=== PATIENT | male | born 1950 | race Caucasian/White ===

== ENCOUNTER 2018-05-23 07:46 | Emergency (ER) | payer OTHER, MEDICAID ==
--- NOTE | 2018-05-23 08:07 | EDPHY ---
H & P Time Seen by Provider: 05/23/18 08:06 HPI/ROS: Chief complaint. Altered mental status HPI. A 67-year-old male here by EMS with altered mental status. 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 He denies any other drugs or alcohol. He went to a support group this morning and they felt like he was slightly altered and called EMS. 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 Denies focal weakness or paresthesias. He denies headache, visual change, chest pain, shortness of breath, abdominal pain, vomiting or diarrhea, fever. He tells me he is feeling better now. ROS Constitutional. no fever/chills, no weakness Eyes. no problems with vision ENT. no sore throat, no nasal drainage Cardiovascular. no chest pain Respiratory. no shortness of breath, no cough Abdominal. no abdominal pain, no nausea/vomiting, no diarrhea . no problems urinating MS. no calf pain/swelling, no neck/back pain, no joint pain Skin. no rash Lymph. no swollen glands Neuro. Altered mental status per patient's support group Past Medical/Surgical History: CVA, hypertension remote IV drug use on daily methadone Social History: Single, nonsmoker, denies alcohol Smoking Status: Never smoked Physical Exam: General Appearance: Alert pleasant well-developed male mild distress vital signs significant for O2 saturation 85% on room air Eyes: Pupils equal and round no pallor or injection. ENT, Mouth: Mucous membranes are moist. Respiratory: There are no retractions, lungs are clear to auscultation. Cardiovascular: Regular rate and rhythm. Gastrointestinal: Abdomen is soft and nontender, no masses, bowel sounds normal. Neurological: Awake and alert, sensory and motor exams grossly normal. Speech is baseline with baseline dysphagia. Cranial nerve show residual left facial droop from his previous CVA that he says is not new or different. There is no pronator drift. [id number] and [id number]-[id number] are intact. Skin: Warm and dry, no rashes. Musculoskeletal: Neck is supple nontender. Extremities symmetrical, full range of motion. Psychiatric: Patient is oriented X 3, there is no agitation. Constitutional: Initial Vital Signs Temperature (C) 37.1 C 05/23/18 07:55 Heart Rate 68 05/23/18 07:55 Respiratory Rate 16 05/23/18 07:55 Blood Pressure 147/96 H 05/23/18 07:55 O2 Sat (%) 85 L 05/23/18 07:55 O2 Delivery Mode Room Air Allergies/Adverse Reactions: No Known Allergies Allergy (Unverified 05/10/13 18:49) Home Medications: Medication Instructions Recorded Aspirin [Aspirin 325 mg (OTC)] 325 mg PO DAILY 05/10/13 Cholecalciferol Vit D3 [Vitamin D3 10,000 units PO DAILY 05/10/13 2000 units (OTC)] Diazepam [Valium 5 MG (RX)] 10 mg PO DAILY 05/10/13 Herbals/Supplements -Info Only 1 each PO AD 05/10/13 Ibuprofen [Motrin 600 mg (RX)] 600 mg PO TID PRN 05/10/13 Lisinopril [Zestril 40 mg (RX)] 40 mg PO DAILY 05/10/13 M D Recon 05/1005/10/13 Methadone HCl [Methadone Intensol] 135 mg PO DAILY 05/10/13 Pharmacist Completed 05/10/13 05/10/13 Prolia Inj 60 mg SQ [id number] 05/10/13 amLODIPine BESYLATE [Norvasc] 10 mg PO DAILY 05/10/13 predniSONE [predniSONE] 1 mg PO DAILY 05/10/13 Medical Decision Making - Diagnostics EKG Interpretation: EKG interpreted by me shows normal sinus rhythm with normal interval and axis. QRS shows evidence of right bundle branch block. There is no significant ST elevation or depression. No arrhythmia. The rate is 61 Imaging Results: Imaging Impressions Chest X-Ray 05/23/18 08:16 Impression: Clear lungs. No acute process. Head CT 05/23/18 08:16 Impression: 1. No acute intracranial process. 2. Age advanced generalized cerebral volume loss with sequela of chronic microvascular ischemic disease. 3. Old ischemic foci within the basal ganglia, worse on the right, and encephalomalacic changes within the left occipital lobe likely from old infarct. Findings and recommendations discussed with LINO TAVERA at 0913 hour, 2017. Chest x-ray interpreted by me is normal Noncontrast head CT reviewed by me and discussed with Radiology shows old evidence of CVA but is otherwise interpreted as nonacute Procedures: IV normal saline, monitor ED Course/Re-evaluation: Re-evaluation 11:00 a.m.. Patient is stable. He says I am back to normal I feel fine. The patient and I discussed imaging and lab results. Discussed treatment plan including criteria for return importance of follow-up and further evaluation. He expresses understanding and agreement Differential Diagnosis: Apparent altered mental status but no evidence for acute medical findings. I considered CVA, intracranial bleeding, electrolyte abnormalities, encephalopathy. - Data Points Laboratory Results: Laboratory Results 05/23/18 07:47 05/23/18 07:47 05/23/18 05/23/18 05/23/18 08:28 07:47 07:47 WBC RBC Hgb Hct MCV MCH MCHC RDW Plt Count MPV Neut % (Auto) Lymph % (Auto) [place] % (Auto) Eos % (Auto) Baso % (Auto) Nucleat RBC Rel Count Absolute Neuts (auto) Absolute Lymphs (auto) Absolute Monos (auto) Absolute Eos (auto) Absolute Basos (auto) Absolute Nucleated RBC Immature Gran % Immature Gran # PT 13.7 SEC SEC (12.0-15.0) INR 1.03 (0.83-1.16) APTT 26.1 SEC SEC (23.0-38.0) Sodium 139 mEq/L mEq/L (135-145) Potassium 4.6 mEq/L mEq/L (3.3-5.0) Chloride 101 mEq/L mEq/L (97-110) Carbon Dioxide 25 mEq/l mEq/l (22-31) Anion Gap 13 mEq/L mEq/L (8-16) BUN 22 mg/dL mg/dL (7-23) Creatinine 1.2 mg/dL mg/dL (0.7-1.3) Estimated GFR 60 Glucose 114 mg/dL H mg/dL (70-100) Calcium 10.0 mg/dL mg/dL (8.5-10.4) Total Bilirubin 0.6 mg/dL mg/dL (0.1-1.4) Conjugated Bilirubin 0.1 mg/dL mg/dL (0.0-0.5) Unconjugated Bilirubin 0.5 mg/dL mg/dL (0.0-1.1) AST 25 IU/L IU/L (17-59) ALT 21 IU/L IU/L (21-72) Alkaline Phosphatase 103 IU/L IU/L (38-126) POC Troponin I 0.01 ng/mL ng/mL (0.00-0.08) Total Protein 7.6 g/dL g/dL (6.3-8.2) Albumin 4.3 g/dL g/dL (3.5-5.0) Ethyl Alcohol < 10 mg/dL mg/dL (0-10) 05/23/18 07:47 WBC 6.12 10^3/uL 10^3/uL (3.80-9.50) RBC 4.64 10^6/uL 10^6/uL (4.40-6.38) Hgb 14.4 g/dL g/dL (13.7-17.5) Hct 43.0 % % (40.0-51.0) MCV 92.7 fL fL (81.5-99.8) MCH 31.0 pg pg (27.9-34.1) MCHC 33.5 g/dL g/dL (32.4-36.7) RDW 13.2 % % (11.5-15.2) Plt Count 255 10^3/uL 10^3/uL (150-400) MPV 10.6 fL fL (8.7-11.7) Neut % (Auto) 75.6 % H % (39.3-74.2) Lymph % (Auto) 12.4 % L % (15.0-45.0) [place] % (Auto) 9.2 % % (4.5-13.0) Eos % (Auto) 1.6 % % (0.6-7.6) Baso % (Auto) 0.7 % % (0.3-1.7) Nucleat RBC Rel Count 0.0 % % (0.0-0.2) Absolute Neuts (auto) 4.63 10^3/uL 10^3/uL (1.70-6.50) Absolute Lymphs (auto) 0.76 10^3/uL L 10^3/uL (1.00-3.00) Absolute Monos (auto) 0.56 10^3/uL 10^3/uL (0.30-0.80) Absolute Eos (auto) 0.10 10^3/uL 10^3/uL (0.03-0.40) Absolute Basos (auto) 0.04 10^3/uL 10^3/uL (0.02-0.10) Absolute Nucleated RBC 0.00 10^3/uL 10^3/uL (0-0.01) Immature Gran % 0.5 % % (0.0-1.1) Immature Gran # 0.03 10^3/uL 10^3/uL (0.00-0.10) PT INR APTT Sodium Potassium Chloride Carbon Dioxide Anion Gap BUN Creatinine Estimated GFR Glucose Calcium Total Bilirubin Conjugated Bilirubin Unconjugated Bilirubin AST ALT Alkaline Phosphatase POC Troponin I Total Protein Albumin Ethyl Alcohol Medications Given: Discontinued Medications Sodium Chloride (Ns) 1,000 mls @ 0 mls/hr IV ONCE ONE; Wide Open PRN Reason: Protocol Stop: 05/23/18 08:16 Last Admin: 05/23/18 08:23 Dose: 1,000 mls Point of Care Test Results: Chemistry 05/23/18 08:28 POC Troponin I 0.01 ng/mL ng/mL (0.00-0.08) Departure - Departure Disposition: Home, Routine, Self-Care Clinical Impression: Altered mental status Qualifiers: Altered mental status type: unspecified Qualified Code(s): R41.82 - Altered mental status, unspecified Condition: Good Instructions: Altered Mental Status (ED) Additional Instructions: Regular eating and drinking. Continue regular medications including Methadone. Return for worsening symptoms. Recheck in 1 day if any continuing symptoms Referrals: Patient,NotPresent [Unknown] - As per Instructions
[2018-05-23] MEDS ORDERED: NS 1,000 ML IV ONE (08:15)
[2018-05-23 08:24] LABS: PLATELET COUNT 255 10^3/uL (150-400)
--- NOTE | 2018-05-23 08:26 | CPEKG ---
Heart Rate: 61 RR Interval: 984 P-R Interval: 132 QRSD Interval: 138 QT Interval: 484 QTC Interval: 488 P [place]: 52 QRS [place]: 67 T Wave [place]: 21 EKG Severity - ABNORMAL ECG - EKG Impression: SINUS RHYTHM EKG Impression: RIGHT BUNDLE BRANCH BLOCK Electronically Signed By: Oliver Davis 23-May-2018 14:16:11
[2018-05-23 08:32] LABS: INR 1.03 (0.83-1.16); PROTIME(PATIENT) 13.7 SEC (12.0-15.0)
[2018-05-23 11:46] VITALS: BP 161/90
== END 2018-05-23 11:46 | disposition home or self-care (01) ==
LOC: EDUNIT#
DX: R41.82 Altered mental status, unspecified (principal); I10 Essential (primary) hypertension; E86.9 Volume depletion, unspecified; Z79.82 Long term (current) use of aspirin; Z86.73 Personal history of transient ischemic attack (TIA), and cerebral infarction without residual deficits
CPT/HCPCS: 84484-PO; G0480